=== PATIENT | female | born 1950 | race African-American/Black ===

== ENCOUNTER 2016-09-16 10:25 | Inpatient (IN) | payer MEDICARE, OTHER ==
[2016-09-16 10:36] VITALS: BMI 38.0
[2016-09-16] MEDS ORDERED: SODIUM CHLORIDE 0.9% 1000 ML INFUS.BAG IV PRN (11:11)
[2016-09-16] MEDS ORDERED: ACETAMINOPHEN 325 MG TABLET (FP) PO ONE (11:14)
[2016-09-16] MEDS ORDERED: ALBUTEROL SO4 2.5/IPRATROPIUM 0.5 INH SOL 3 ML VIAL.NEB. NEB ONE ×2 (11:16→11:49)
--- NOTE | 2016-09-16 11:16 | PDOC ---
History of Present Illness - General Chief Complaint: Shortness of Breath Stated Complaint: COUGH, LIGHTHEADED Time Seen by Provider: 09/16/16 10:45 History Source: Patient Exam Limitations: No Limitations - History of Present Illness Initial Comments: 09/16/16 11:42 65 yo F with PMHx of HTN , HLD, NIDDM, and CVA presents with 5 day history of cough and shortness of breath. She states that for the past week cough has been productive and worsened. BONNER not responsive to home breathing treatments. No alleviating or aggivating factors. Accompanied by body aches, CASTILLO, nausea and fever. She also endorses some LUQ pain which she attributes to continuous coughing. Denies palpitations, abd.pain, constipation, diarrhea or hemoptysis. Timing/Duration: reports: getting worse, week Associated Symptoms: reports: chest pain/soreness, cough Past History - Past Medical History Allergies/Adverse Reactions: Allergies Allergy/AdvReac Type Severity Reaction Status Date / Time methylphenidate HCl Allergy Verified 09/16/16 10:30 [From Ritalin] Home Medications: Ambulatory Orders Albuterol Sulfate Inhaler - [Ventolin Hfa Inhaler -] 1 puff IH ASDIR PRN Calcium Carbonate [Calcium] 500 mg PO DAILY 09/16/16 Clopidogrel Bisulfate [Clopidogrel] 75 mg PO DAILY 09/16/16 Fluconazole 150 mg PO DAILY 09/16/16 Linagliptin [Tradjenta] 5 mg PO DAILY 09/16/16 Pantoprazole Sodium [Protonix] 40 mg PO DAILY 09/16/16 Simvastatin 40 mg PO DAILY 09/16/16 Umeclidinium Brm/Vilanterol Tr [Anoro Ellipta 62.5-25 Mcg INH] 1 each IH DAILY PRN 09/16/16 Valsartan 80 mg PO DAILY 09/16/16 Cancer: Yes (CERVIX) CVA: Yes (LEFT SIDED WEAKNESS RESIDUAL) Dialysis: Yes HTN: Yes Hypercholesterolemia: Yes Other medical history: LEGALY BLIND, SCOLIOSIS - Psycho/Social/Smoking Cessation Hx Anxiety: No Suicidal Ideation: No Smoking Status: No Smoking History: Former smoker Have you smoked in the past 12 months: No Number of Cigarettes Smoked Daily: 0 Information on smoking cessation initiated: No Hx Alcohol Use: No Drug/Substance Use Hx: No Substance Use Type: None *Physical Exam - Vital Signs Last Vital Signs Temp Pulse Resp BP Pulse Ox 98.7 F 99 H 18 132/45 93 L 09/16/16 10:33 09/16/16 10:33 09/16/16 10:33 09/16/16 10:33 09/16/16 10:33 Heart Score/ECG Review - ECG Intrepretation Rhythm: Regular Rhythm - [place]: Normal - ST and T Non Specific ST-T Wave changes: Yes - ECG Impressions Normal ECG: Yes Comment:: 09/16/16 13:33 NSR normal intervals , No ST or T wave abnormalities. ED Treatment Course - LABORATORY CBC & Chemistry Diagram: 09/16/16 11:45 09/16/16 11:45 - RADIOLOGY Radiology Studies Ordered: Category Date Time Status CHEST X-RAY PORTABLE* [RAD] Stat Radiology 09/16/16 11:11 Ordered Radiograph Interpretation: 09/16/16 13:32 EXAM#: TYPE/EXAM: RESULT: [id number] RAD/CHEST X-RAY PORTABLE* Rule out sepsis Portable chest x-ray semierect. Since 04/12/2016, the cardiac silhouette remains slightly enlarged. Significant levoscoliosis of the thoracic spine again noted. There are mild bilateral perihilar increased interstitial lung markings. Mild right perihilar atelectatic changes are present. No pneumothorax or pleural effusion is identified, bilaterally IMPRESSION: Interval mild atelectatic changes in the right mid lung, perihilar region. Cannot rule out infiltrates. Follow-up chest x-ray is needed Reported By: Claire Guillermo MD Medical Decision Making - Medical Decision Making 09/16/16 13:27 65 yo F with PMHx of HTN , HLD, NIDDM, and CVA presents with 5 day history of cough and shortness of breath. Found to be hypoxic 91% on RA and febrile 100.4 . Sepsis protocol sent. CBC, BC, CMP, UZ CXR, Lactic acid sent. 09/16/16 13:34 * Chest Xray cannot rule out infiltrate. * Given Age , Hypoxia, fever, and CXR findings decision is to admit. 09/16/16 13:[address] Kennedy who accepts the patient. *DC/Admit/Observation/Transfer Diagnosis at time of Disposition: CAP (community acquired pneumonia), Hypoxia - Discharge Dispostion Admit: Yes
--- NOTE | 2016-09-16 11:27 | PDOC ---
Attending Attestation - Resident Resident Name: Ezra Nina - ED Attending Attestation I have performed the following: I have examined & evaluated the patient, The case was reviewed & discussed with the resident, I agree w/resident's findings & plan, Exceptions are as noted - HPI HPI: 09/16/16 11:22 65-year-old female with history of stroke, HTN, NIDDM, scoliosis with worsening cough/f/c over the weekend. - Physicial Exam PE: 09/16/16 11:26 febrile, O2 sat 93% generally well appearing, intermittent coarse cough, speaking full sentences R base rhonchi and wheeze - Medical Decision Making 09/16/16 11:27 Patient seen and evaluated with the resident. I agree with the overall evaluation, assessment, and management with the following summary of visit: 65y/o F with fever/cough. sepsis protocol initiated. flu swab, r/o pna tylenol for fever nebs abx as needed reassess
[2016-09-16] MEDS ORDERED: ONDANSETRON *ODT* 4 MG TABLET SL ONE (11:45)
[2016-09-16] MEDS ORDERED: ACETAMINOPHEN 325 MG TABLET (FP) ONE (11:49)
[2016-09-16] MEDS ORDERED: ONDANSETRON 4 MG/2 ML VIAL ONE (11:49)
[2016-09-16 11:53] LABS: BASOPHIL 0.3 % (0-2.0); EOSINOPHIL 2.1 % (0-4.5); MCH 27.6 pg (25.7-33.7); MCHC 32.5 g/dl (32.0-36.0); MEAN CELL VOLUME 84.8 fl (80-96); MEAN PLT VOLUME 8.8 fl (7.5-11.1); NEUTROPHILS 68.9 % (42.8-82.8); PLATELET COUNT 196 K/MM3 (134-434); RDW 14.2 % (11.6-15.6); WHITE BLOOD COUNT 8.9 K/mm3 (4.0-10.0)
[2016-09-16] MEDS ORDERED: ONDANSETRON 4 MG/2 ML VIAL IVPB ONE (11:54)
[2016-09-16 12:05] LABS: VENOUS PH 7.39 (7.32-7.42)
[2016-09-16 12:07] LABS: VENOUS BLOOD GAS HCO3 27.3 meq/L (19-25)
[2016-09-16 12:10] LABS: ALBUMIN 3.6 g/dl (3.4-5.0); ANION GAP 10 (8-16); BILIRUBIN,TOTAL 0.8 mg/dL (0.2-1.0); CALCIUM 9.1 mg/dL (8.5-10.1); CO2 27 mmol/L (21-32); COCKROFT - GAULT 100.9715; CREATININE 0.7 mg/dL (0.55-1.02); GLUCOSE,RANDOM 101 mg/dL (74-106); SGOT/AST 20 U/L (15-37); SGPT/ALT 21 U/L (12-78); TOT PROT 7.6 g/dl (6.4-8.2)
[2016-09-16 12:15] LABS: ALK PHOS 71 U/L (45-117); TROPONIN I < 0.02 ng/ml (0.00-0.05)
[2016-09-16 12:21] LABS: INR 1.14 (0.82-1.09); PROTHROMBIN TIME (PATIENT) 12.6 SEC (9.98-11.88)
[2016-09-16] MEDS ORDERED: cefTRIAXone 1 GM/50 ML BAG (PRE-DOCKED) IVPB ONE (13:39)
[2016-09-16] MEDS ORDERED: AZITHROMYCIN IVPB 500 MG in DEXTROSE 5%-WATER - 250 ML IVPB ONE (13:39)
[2016-09-16] MEDS ORDERED: CEFTRIAXONE 50 ML ONE (14:16)
[2016-09-16] MEDS ORDERED: AZITHROMYCIN IVPB 250 ML IVPB ONE (14:16)
[2016-09-16] MEDS ORDERED: PATIENT'S OWN MEDICATION (NON-FORMULARY) (Umeclidinium Brm/Vilanterol Tr [Anoro Ellipta 62 IH PRN (15:11)
[2016-09-16] MEDS ORDERED: ALBUTEROL SO4 2.5/IPRATROPIUM 0.5 INH SOL 3 ML VIAL.NEB. NEB PRN (15:12)
--- NOTE | 2016-09-16 17:03 | PN ---
Progress Note (short form) - Note Progress Note: PULMONARY CONSULTATION DICTATED 09/16/16 IMP RUL PNEUMONIA ASTHMA HTN NIDDM PLAN IV ANTIBIOTICS INHALED BRONCHODILATORS NASAL O2 SPUTUM C+S CHEST CT DR AYON Problem List - Problems (1) CAP (community acquired pneumonia) Code(s): J18.9 - PNEUMONIA, UNSPECIFIED ORGANISM (2) Hypoxia Code(s): R09.02 - HYPOXEMIA (3) Headache Code(s): R51 - HEADACHE (4) Hypertension Code(s): I10 - ESSENTIAL (PRIMARY) HYPERTENSION (5) Asthma Code(s): J45.909 - UNSPECIFIED ASTHMA, UNCOMPLICATED
--- NOTE | 2016-09-16 19:38 | CONS ---
DATE OF CONSULTATION: 09/16/2016 PULMONARY CONSULTATION REFERRING PHYSICIAN: Calin Kennedy M.D. HISTORY OF PRESENT ILLNESS: The patient is a 65-year-old black female, with past medical history of hypertension, hyperlipidemia, non-insulin dependent diabetes mellitus, history of CVA, blindness, history of asthma, admitted to [facility] complaining of a 5-day history of increasing shortness of breath, some cough and sputum production. Patient states that last week started noticing increasing shortness of breath and cough. Denied any complaints of chest pain or palpitations. States that she took an inhaler without any improvement. She presented to the emergency room as above. In the ER, she admitted she was noted to have possible right upper lobe infiltrate. She is on antibiotic therapy. Patient also states she had body aches, headaches, and fever. There is no history of recent travel. She has history of smoking many years ago. There is no history of occupational exposure to chemicals or fumes. PAST MEDICAL HISTORY: Again includes hypertension, hyperlipidemia, non-insulin dependent diabetes mellitus, CVA and asthma. MEDICATION: Prior to admission include albuterol, calcium, Plavix, fluconazole , and Tradjenta. Current medications include Anoro Ellipta, Diovan, DuoNeb, Januvia, Lipitor, Plavix, Protonix, and Os-Kota. REVIEW OF SYSTEMS: Positive cough. Positive chest congestion. Positive fever. Positive chills. No abdominal pain. No nausea. No vomiting. PHYSICAL EXAMINATION: General: The patient is a well-developed, well-nourished female awake, alert, in no acute distress. Vital signs: She is currently afebrile. Blood pressure 132/45, respiratory rate 18, O2 saturation is 93% on room air. HEENT: Head is normocephalic, atraumatic. Neck: Supple. Heart: Regular. S1, S2. Chest: Scattered bilateral wheeze, no rhonchi. Abdomen: Soft. Bowel sounds positive. Extremities: No cyanosis, edema. LABORATORY: WBC is 8.9, hemoglobin 13.8, hematocrit 42.6, with platelet count of 196,000. INR is 1.14. Venous blood gases: pH 7.39, pCO2 of 46, pO2 of 36, bicarbonate of 27. Chemistries: BUN 10, creatinine 0.7. Chest x-ray revealed possible infiltrate right upper lobe, mild atelectatic change, possible right upper lobe, right perihilar infiltrate. IMPRESSION: 1. Likely pneumonia, community acquired. 2. Asthma. 3. Non-insulin dependent diabetes mellitus. 4. Hypertension. 5. Status post cerebrovascular accident. PLAN: IV antibiotics, inhaled bronchodilators, supplemental O2, sputum for C&S , also CT scan of the chest, and blood cultures. CADY AYON M.D. [id number] MTDD
[2016-09-16] MEDS: HEPARIN NA (PORCINE) 5,000 UNITS/ML 1ML VIAL SQ SCH (22:04)
[2016-09-16] MEDS: ATORVASTATIN CA 20 MG TABLET (FP) PO SCH (22:04)
[2016-09-16] MEDS: BUDESONIDE/FORMETEROL FUMARATE 160/4.5 mcg INHALER IH SCH (22:57)
[2016-09-17 01:04] LABS: URINE APPEARANCE CLEAR; URINE BILIRUBIN NEGATIVE (NEGATIVE); URINE BLOOD NEGATIVE (NEGATIVE); URINE COLOR LTYELLOW; URINE GLUCOSE (UA) NEGATIVE (NEGATIVE); URINE KETONE NEGATIVE (NEGATIVE); URINE NITRITE NEGATIVE (NEGATIVE); URINE PROTEIN NEGATIVE (NEGATIVE); URINE UROBILINOGEN NEGATIVE E.U./dl (0.2-1.0)
[2016-09-17 01:12] LABS: URINE LEUK ESTERASE 2+ (NEGATIVE)
[2016-09-17 01:14] LABS: URINE MUCUS RARE; URINE RBC 2 /hpf (0-3); URINE WBC 4 /hpf (3-5)
[2016-09-17] MEDS: sitaGLIPtin PHOSPHATE 100 MG TABLET (FP) PO SCH (06:38)
--- NOTE | 2016-09-17 06:52 | HP ---
Admitting History and Physical - Primary Care Physician PCP: Sergo Navarrete - Admission Chief Complaint: PNA History Source: Medical Record - Smoking History Smoking history: Former smoker Have you smoked in the past 12 months: No Aproximately how many cigarettes per day: 0 - Alcohol/Substance Use Hx Alcohol Use: No Home Medications - Allergies Allergies/Adverse Reactions: Allergies Allergy/AdvReac Type Severity Reaction Status Date / Time methylphenidate HCl Allergy Verified 09/16/16 10:30 [From Ritalin] - Home Medications Home Medications: Ambulatory Orders Albuterol Sulfate Inhaler - [Ventolin Hfa Inhaler -] 1 puff IH ASDIR PRN Calcium Carbonate [Calcium] 500 mg PO DAILY 09/16/16 Clopidogrel Bisulfate [Clopidogrel] 75 mg PO DAILY 09/16/16 Fluconazole 150 mg PO DAILY 09/16/16 Linagliptin [Tradjenta] 5 mg PO DAILY 09/16/16 Pantoprazole Sodium [Protonix] 40 mg PO DAILY 09/16/16 Simvastatin 40 mg PO DAILY 09/16/16 Umeclidinium Brm/Vilanterol Tr [Anoro Ellipta 62.5-25 Mcg INH] 1 each IH DAILY PRN 09/16/16 Valsartan 80 mg PO DAILY 09/16/16 Review of Systems - Review of Systems Constitutional: reports: Fever. denies: Chills Cardiovascular: denies: Chest Pain Respiratory: reports: SOB Gastrointestinal: denies: Abdominal Pain Physical Examination Vital Signs: Vital Signs Temperature 99.6 F 09/16/16 21:00 Pulse Rate 91 H 09/16/16 21:00 Respiratory Rate 20 09/16/16 21:00 Blood Pressure 153/67 09/16/16 21:00 O2 Sat by Pulse Oximetry (%) 93 L 09/16/16 21:00 Constitutional: Yes: Calm Neck: Yes: WNL Cardiovascular: Yes: WNL Respiratory: Yes: Rhonchi Gastrointestinal: Yes: WNL Edema: No Imaging - Results Chest X-ray: Report Reviewed Problem List - Problems (1) CAP (community acquired pneumonia) Code(s): J18.9 - PNEUMONIA, UNSPECIFIED ORGANISM (2) Hypertension Code(s): I10 - ESSENTIAL (PRIMARY) HYPERTENSION (3) Diabetes Code(s): E11.9 - TYPE 2 DIABETES MELLITUS WITHOUT COMPLICATIONS (4) Asthma Code(s): J45.909 - UNSPECIFIED ASTHMA, UNCOMPLICATED Assessment/Plan 65 yo F with PMHx of HTN , HLD, NIDDM, and CVA presents with 5 day history of cough and shortness of breath. She states that for the past week cough has been productive and worsened. BONNER not responsive to home breathing treatments. No alleviating or aggivating factors. Accompanied by body aches, CASTILLO, nausea and fever. She also endorses some LUQ pain which she attributes to continuous coughing. Denies palpitations, abd.pain, constipation, diarrhea or hemoptysis. (1) CAP (community acquired pneumonia) Code(s): J18.9 - PNEUMONIA, UNSPECIFIED ORGANISM APPRECIATE PULM CONSULT ID CONSULTED STEROIDS IV ABx DUONEB (2) Hypertension Code(s): I10 - ESSENTIAL (PRIMARY) HYPERTENSION (3) Diabetes Code(s): E11.9 - TYPE 2 DIABETES MELLITUS WITHOUT COMPLICATIONS BGM ISS (4) Asthma Code(s): J45.909 - UNSPECIFIED ASTHMA, UNCOMPLICATED DUONEB PO STEROIDS IV ABx PASTOR WALKER
[2016-09-17] MEDS: INSULIN SLIDING SCALE (NOVOLOG) 1 VIAL SQ SCH ×4 (07:24→21:49)
[2016-09-17 07:43] LABS: BASOPHIL 0.2 % (0-2.0); EOSINOPHIL 5.1 % (0-4.5); MCH 27.4 pg (25.7-33.7); MCHC 32.6 g/dl (32.0-36.0); MEAN CELL VOLUME 84.1 fl (80-96); MEAN PLT VOLUME 9.1 fl (7.5-11.1); NEUTROPHILS 52.6 % (42.8-82.8); PLATELET COUNT 169 K/MM3 (134-434); RDW 13.8 % (11.6-15.6); WHITE BLOOD COUNT 8.3 K/mm3 (4.0-10.0)
[2016-09-17 08:37] LABS: CALCIUM 8.5 mg/dL (8.5-10.1)
[2016-09-17 08:44] LABS: ALK PHOS 59 U/L (45-117); ANION GAP 12 (8-16); BILIRUBIN,TOTAL 0.5 mg/dL (0.2-1.0); CO2 25 mmol/L (21-32); CREATININE 0.5 mg/dL (0.55-1.02); GLUCOSE,RANDOM 89 mg/dL (74-106); SGOT/AST 26 U/L (15-37); SGPT/ALT 22 U/L (12-78); TOT PROT 6.4 g/dl (6.4-8.2)
[2016-09-17] MEDS: CALCIUM (OYSTER SHELL) 500 MG TABLET (FP) PO SCH (09:59)
[2016-09-17] MEDS: CLOPIDOGREL BISULFATE 75 MG TABLET (FP) PO SCH (09:59)
[2016-09-17] MEDS: predniSONE 20 MG TABLET (UD) PO SCH (10:00)
[2016-09-17] MEDS: HEPARIN NA (PORCINE) 5,000 UNITS/ML 1ML VIAL SQ SCH ×2 (10:00→21:49)
[2016-09-17] MEDS: PANTOPRAZOLE 40 MG TABLET (FP) PO SCH (10:00)
[2016-09-17] MEDS: BUDESONIDE/FORMETEROL FUMARATE 160/4.5 mcg INHALER IH SCH ×2 (10:00→21:49)
[2016-09-17] MEDS: VALSARTAN 80 MG TABLET (UD) PO SCH (10:00)
--- NOTE | 2016-09-17 13:05 | EKG ---
Test Reason : Blood Pressure : / mmHG Vent. Rate : 082 BPM Atrial Rate : 082 BPM P-R Int : 164 ms QRS Dur : 084 ms QT Int : 382 ms P-R-T Axes : 034 -28 003 degrees QTc Int : 446 ms NORMAL SINUS RHYTHM MINIMAL VOLTAGE CRITERIA FOR LVH, MAY BE NORMAL VARIANT NONSPECIFIC T WAVE ABNORMALITY ABNORMAL ECG WHEN COMPARED WITH ECG OF 12-APR-2016 12:35, NO SIGNIFICANT CHANGE WAS FOUND Confirmed by DC LEE, ROXY ([id number]) on 09/17/2016 1:05:22 PM Referred By: Confirmed By:ROXY IRWIN MD
--- NOTE | 2016-09-17 14:15 | PN ---
Progress Note, Physician History of Present Illness: PULMONARY ALERT,FEELING BETTER,LESS COUGH - Current Medication List Current Medications: Active Medications Albuterol/Ipratropium (Duoneb -) 1 amp NEB Q4H PRN PRN Reason: SHORTNESS OF BREATH Atorvastatin Calcium (Lipitor -) 20 mg PO HS [facility] Last Admin: 09/16/16 22:04 Dose: 20 mg Budesonide/Formoterol Fumarate (Symbicort 160/4.5mcg -) 2 puff IH BID [facility] Last Admin: 09/17/16 10:00 Dose: 2 puff Calcium Carbonate (Os-Kota 500mg -) 500 mg PO DAILY [facility] Last Admin: 09/17/16 09:59 Dose: 500 mg Clopidogrel Bisulfate (Plavix -) 75 mg PO DAILY [facility] Last Admin: 09/17/16 09:59 Dose: 75 mg Heparin Sodium (Porcine) (Heparin -) 5,000 unit SQ BID [facility] Last Admin: 09/17/16 10:00 Dose: 5,000 unit Insulin Aspart (Novolog Vial Sliding Scale -) 1 vial SQ ACHS [facility] PRN Reason: Protocol Last Admin: 09/17/16 12:28 Dose: Not Given Pantoprazole Sodium (Protonix -) 40 mg PO DAILY [facility] Last Admin: 09/17/16 10:00 Dose: 40 mg Prednisone (Deltasone -) 40 mg PO DAILY [facility] Stop: 09/22/16 09:59 Last Admin: 09/17/16 10:00 Dose: 40 mg Sitagliptin Phosphate (Januvia -) 100 mg PO DAILY@0700 [facility] Last Admin: 09/17/16 06:38 Dose: 100 mg Sodium Chloride (Normal Saline -) 1,000 ml IV Q20M PRN PRN Reason: MAP<65mm Hg OR SBP <90 Last Admin: 09/16/16 11:56 Dose: 1,000 ml Valsartan (Diovan -) 80 mg PO DAILY [facility] Last Admin: 09/17/16 10:00 Dose: 80 mg - Objective Vital Signs: Vital Signs Temperature 98.7 F 09/17/16 13:59 Pulse Rate 82 09/17/16 13:59 Respiratory Rate 18 09/17/16 13:59 Blood Pressure 150/46 09/17/16 13:59 O2 Sat by Pulse Oximetry (%) 93 L 09/16/16 21:00 Constitutional: Yes: Well Nourished, Calm Eyes: Yes: WNL HENT: Yes: WNL Neck: Yes: WNL Cardiovascular: Yes: Regular Rate and Rhythm, S1, S2 Respiratory: Yes: Rhonchi (SCATTERED RHONCHI) Gastrointestinal: Yes: Normal Bowel Sounds, Soft Extremities: Yes: WNL Edema: No Labs: CBC, BMP 09/17/16 06:35 09/17/16 06:35 INR, PTT INR 1.14 (0.82-1.09) 09/16/16 11:45 Problem List - Problems (1) CAP (community acquired pneumonia) Code(s): J18.9 - PNEUMONIA, UNSPECIFIED ORGANISM (2) Hypoxia Code(s): R09.02 - HYPOXEMIA (3) Headache Code(s): R51 - HEADACHE (4) Hypertension Code(s): I10 - ESSENTIAL (PRIMARY) HYPERTENSION (5) Asthma Code(s): J45.909 - UNSPECIFIED ASTHMA, UNCOMPLICATED Assessment/Plan IMP RUL PNEUMONIA ASTHMA HTN NIDDM PLAN IV ANTIBIOTICS INHALED BRONCHODILATORS NASAL O2 SPUTUM C+S CHEST CT DR AYON Problem List - Problems (1) CAP (community acquired pneumonia) Code(s): J18.9 - PNEUMONIA, UNSPECIFIED ORGANISM (2) Hypoxia Code(s): R09.02 - HYPOXEMIA (3) Headache Code(s): R51 - HEADACHE (4) Hypertension Code(s): I10 - ESSENTIAL (PRIMARY) HYPERTENSION (5) Asthma Code(s): J45.909 - UNSPECIFIED ASTHMA, UNCOMPLICATED
--- NOTE | 2016-09-17 14:55 | PN ---
Progress Note (short form) - Note Progress Note: ID Consult dictated Community acquired v atypical R pneumonia Possible sepsis secondary to pneumonia Diabetes mellitus pending sepsis workup, empiric zithromax/ ceftriaxone
--- NOTE | 2016-09-17 15:34 | CONS ---
DATE OF CONSULTATION: DATE OF DICTATION: 09/17/2016 INFECTIOUS DISEASE CONSULTATION HISTORY OF PRESENT ILLNESS: The patient is a 65-year-old female with multiple comorbidities including diabetes mellitus, stroke, and blindness, evaluated for pneumonia. She presented with a 5-day history of worsening productive cough, dyspnea, headache, body ache, fever, chills. She also experienced left upper quadrant abdominal pain secondary to excessive coughing. Patient is legally blind and was unable to tell us the color of the sputum; however, she reports that it was very thick. She had been in contact with a young child with a respiratory tract infection. Patient states she did receive influenza vaccine, denies recent hospitalizations. She is a nonsmoker. PAST MEDICAL HISTORY: Positive for diabetes mellitus, stroke, blindness, hypertension, hyperlipidemia, cervical cancer. ALLERGIES: RITALIN. MEDICATION: Include Zithromax, ceftriaxone, Symbicort, prednisone, Diovan, DuoNeb, Januvia, Lipitor, Plavix, Protonix. SOCIAL HISTORY: Lives at home. Nonsmoker, nondrinker. SYSTEMS REVIEW: Neurologic: Positive for stroke and left hemiparesis. Cardiac: Negative chest pain or palpitations. Respiratory: As per HPI. Gastrointestinal: Negative vomiting or diarrhea. Genitourinary: Negative for urinary tract infection. LABORATORY DATA: White count 8.3, hematocrit 37.3, platelet count 169, creatinine 0.5. Urinalysis: 4 white cells. Chest x-ray shows increased markings right lung field. PHYSICAL EXAMINATION: General: She is awake. She is legally blind. Vital signs: Temperature 98.7, blood pressure 150/46, pulse 82 regular, respirations 16 per minute. HEENT: Sclerae anicteric. Cardiovascular: Heart sounds S1, S2. Respiratory: Lungs rhonchi bilaterally right greater than left. Abdomen: Soft. No tenderness elicited. No mass, rebound, or rigidity. Extremities: 1+ edema. IMPRESSION:1. Community acquired versus atypical right sided pneumonia. 2. Possible sepsis secondary to pneumonia. 3. Diabetes mellitus. Obtain sputum culture. Urine legionella and pneumococcal antigens. Empiric antibiotic coverage with Zithromax and ceftriaxone pending cultures. Will follow. Thank you for the kind referral. KATIE CHAU M.D. [id number]
[2016-09-17] MEDS: ATORVASTATIN CA 20 MG TABLET (FP) PO SCH (21:49)
[2016-09-18] MEDS: INSULIN SLIDING SCALE (NOVOLOG) 1 VIAL SQ SCH ×4 (06:48→21:58)
[2016-09-18] MEDS: sitaGLIPtin PHOSPHATE 100 MG TABLET (FP) PO SCH (06:48)
--- NOTE | 2016-09-18 06:50 | PN ---
Progress Note, Physician Chief Complaint: no distress ambulating with mild dyspnea (baseline) - Current Medication List Current Medications: Active Medications Albuterol/Ipratropium (Duoneb -) 1 amp NEB Q4H PRN PRN Reason: SHORTNESS OF BREATH Atorvastatin Calcium (Lipitor -) 20 mg PO HS [facility] Last Admin: 09/17/16 21:49 Dose: 20 mg Budesonide/Formoterol Fumarate (Symbicort 160/4.5mcg -) 2 puff IH BID [facility] Last Admin: 09/17/16 21:49 Dose: 2 puff Calcium Carbonate (Os-Kota 500mg -) 500 mg PO DAILY [facility] Last Admin: 09/17/16 09:59 Dose: 500 mg Clopidogrel Bisulfate (Plavix -) 75 mg PO DAILY [facility] Last Admin: 09/17/16 09:59 Dose: 75 mg Heparin Sodium (Porcine) (Heparin -) 5,000 unit SQ BID [facility] Last Admin: 09/17/16 21:49 Dose: 5,000 unit Insulin Aspart (Novolog Vial Sliding Scale -) 1 vial SQ ACHS [facility] PRN Reason: Protocol Last Admin: 09/18/16 06:48 Dose: Not Given Pantoprazole Sodium (Protonix -) 40 mg PO DAILY [facility] Last Admin: 09/17/16 10:00 Dose: 40 mg Prednisone (Deltasone -) 40 mg PO DAILY [facility] Stop: 09/22/16 09:59 Last Admin: 09/17/16 10:00 Dose: 40 mg Sitagliptin Phosphate (Januvia -) 100 mg PO DAILY@0700 [facility] Last Admin: 09/18/16 06:48 Dose: 100 mg Sodium Chloride (Normal Saline -) 1,000 ml IV Q20M PRN PRN Reason: MAP<65mm Hg OR SBP <90 Last Admin: 09/16/16 11:56 Dose: 1,000 ml Valsartan (Diovan -) 80 mg PO DAILY [facility] Last Admin: 09/17/16 10:00 Dose: 80 mg - Objective Vital Signs: Vital Signs Temperature 98.2 F 09/17/16 19:00 Pulse Rate 74 09/17/16 22:00 Respiratory Rate 18 09/17/16 22:00 Blood Pressure 154/64 09/17/16 22:00 O2 Sat by Pulse Oximetry (%) 97 09/17/16 21:00 Constitutional: Yes: Calm Eyes: Yes: Other (blind) Neck: Yes: WNL Cardiovascular: Yes: WNL Respiratory: Yes: WNL Gastrointestinal: Yes: WNL Edema: No Labs: CBC, BMP 09/17/16 06:35 09/17/16 06:35 INR, PTT INR 1.14 (0.82-1.09) 09/16/16 11:45 Problem List - Problems (1) CAP (community acquired pneumonia) Code(s): J18.9 - PNEUMONIA, UNSPECIFIED ORGANISM (2) Hypertension Code(s): I10 - ESSENTIAL (PRIMARY) HYPERTENSION (3) Diabetes Code(s): E11.9 - TYPE 2 DIABETES MELLITUS WITHOUT COMPLICATIONS (4) Asthma Code(s): J45.909 - UNSPECIFIED ASTHMA, UNCOMPLICATED Assessment/Plan 65 yo F with PMHx of HTN , HLD, NIDDM, and CVA presents with 5 day history of cough and shortness of breath. She states that for the past week cough has been productive and worsened. BONNER not responsive to home breathing treatments. No alleviating or aggivating factors. Accompanied by body aches, CASTILLO, nausea and fever. She also endorses some LUQ pain which she attributes to continuous coughing. Denies palpitations, abd.pain, constipation, diarrhea or hemoptysis. (1) CAP (community acquired pneumonia) Code(s): J18.9 - PNEUMONIA, UNSPECIFIED ORGANISM APPRECIATE PULM & ID CONSULTS ID CONSULTED PO STEROIDS IV ABx DUONEB (2) Hypertension Code(s): I10 - ESSENTIAL (PRIMARY) HYPERTENSION (3) Diabetes Code(s): E11.9 - TYPE 2 DIABETES MELLITUS WITHOUT COMPLICATIONS BGM ISS (4) Asthma Code(s): J45.909 - UNSPECIFIED ASTHMA, UNCOMPLICATED DUONEB PO STEROIDS IV ABx [facility]
[2016-09-18 08:54] LABS: BASOPHIL 0.2 % (0-2.0); EOSINOPHIL 0.9 % (0-4.5); MCH 27.5 pg (25.7-33.7); MCHC 32.3 g/dl (32.0-36.0); MEAN CELL VOLUME 85.2 fl (80-96); MEAN PLT VOLUME 9.3 fl (7.5-11.1); NEUTROPHILS 45.5 % (42.8-82.8); PLATELET COUNT 188 K/MM3 (134-434); WHITE BLOOD COUNT 7.2 K/mm3 (4.0-10.0)
[2016-09-18 09:08] LABS: ALBUMIN 3.1 g/dl (3.4-5.0); ANION GAP 9 (8-16); CALCIUM 8.8 mg/dL (8.5-10.1); CO2 28 mmol/L (21-32); CREATININE 0.5 mg/dL (0.55-1.02); GLUCOSE,RANDOM 93 mg/dL (74-106); SGOT/AST 27 U/L (15-37); SGPT/ALT 26 U/L (12-78)
[2016-09-18 09:10] LABS: ALK PHOS 59 U/L (45-117); BILIRUBIN,TOTAL 0.3 mg/dL (0.2-1.0); TOT PROT 6.7 g/dl (6.4-8.2)
[2016-09-18] MEDS: CALCIUM (OYSTER SHELL) 500 MG TABLET (FP) PO SCH (10:54)
[2016-09-18] MEDS: predniSONE 20 MG TABLET (UD) PO SCH (10:54)
[2016-09-18] MEDS: PANTOPRAZOLE 40 MG TABLET (FP) PO SCH (10:55)
[2016-09-18] MEDS: VALSARTAN 80 MG TABLET (UD) PO SCH (10:55)
[2016-09-18] MEDS: BUDESONIDE/FORMETEROL FUMARATE 160/4.5 mcg INHALER IH SCH ×2 (10:55→21:58)
[2016-09-18] MEDS: CLOPIDOGREL BISULFATE 75 MG TABLET (FP) PO SCH (10:55)
[2016-09-18] MEDS: HEPARIN NA (PORCINE) 5,000 UNITS/ML 1ML VIAL SQ SCH ×2 (10:55→21:58)
--- NOTE | 2016-09-18 15:18 | PN ---
Progress Note (short form) - Note Progress Note: PULMONARY VSS/AFEBRILE APPEARS COMFORTABLE/OFFERS NO COMPLAINTS NO JVD/NECK SUPPLE DISTANT B/L BREATH SOUNDS/ KYPHOSCOLIOSIS S1S2 BS+ NO EDEMA LABS/CT CHEST/MEDS/MICRO/NOTES REVIEWED IMP RUL PNEUMONIA ASTHMA HTN NIDDM PLAN IV ANTIBIOTICS INHALED BRONCHODILATORS NASAL O2 SPUTUM C+S TAPER PREDNISONE Delilah RIVERA MD
[2016-09-18] MEDS: AZITHROMYCIN IVPB 250 ML IVPB SCH (15:25)
--- NOTE | 2016-09-18 16:34 | PN ---
Progress Note, Physician History of Present Illness: OOB IN CHAIR Reports less dyspnea/ cough/ sputum Afebrile CT chest shows patchy R infiltrate - Current Medication List Current Medications: Active Medications Albuterol/Ipratropium (Duoneb -) 1 amp NEB Q4H PRN PRN Reason: SHORTNESS OF BREATH Atorvastatin Calcium (Lipitor -) 20 mg PO HS [facility] Last Admin: 09/17/16 21:49 Dose: 20 mg Budesonide/Formoterol Fumarate (Symbicort 160/4.5mcg -) 2 puff IH BID [facility] Last Admin: 09/18/16 10:55 Dose: 2 puff Calcium Carbonate (Os-Kota 500mg -) 500 mg PO DAILY [facility] Last Admin: 09/18/16 10:54 Dose: 500 mg Clopidogrel Bisulfate (Plavix -) 75 mg PO DAILY [facility] Last Admin: 09/18/16 10:55 Dose: 75 mg Heparin Sodium (Porcine) (Heparin -) 5,000 unit SQ BID [facility] Last Admin: 09/18/16 10:55 Dose: 5,000 unit Azithromycin (Zithromax 500mg Ivpb (Pre-Docked)) 250 mls @ 250 mls/hr IVPB DAILY [facility] Last Admin: 09/18/16 15:25 Dose: 250 mls/hr Ceftriaxone Sodium (Rocephin 2gm Ivpb (Pre-Docked)) 100 mls @ 200 mls/hr IVPB DAILY [facility] Insulin Aspart (Novolog Vial Sliding Scale -) 1 vial SQ ACHS [facility] PRN Reason: Protocol Last Admin: 09/18/16 12:14 Dose: Not Given Pantoprazole Sodium (Protonix -) 40 mg PO DAILY [facility] Last Admin: 09/18/16 10:55 Dose: 40 mg Prednisone (Deltasone -) 20 mg PO DAILY [facility] Stop: 09/22/16 09:59 Sitagliptin Phosphate (Januvia -) 100 mg PO DAILY@0700 [facility] Last Admin: 09/18/16 06:48 Dose: 100 mg Sodium Chloride (Normal Saline -) 1,000 ml IV Q20M PRN PRN Reason: MAP<65mm Hg OR SBP <90 Last Admin: 09/16/16 11:56 Dose: 1,000 ml Valsartan (Diovan -) 80 mg PO DAILY [facility] Last Admin: 09/18/16 10:55 Dose: 80 mg - Objective Vital Signs: Vital Signs Temperature 99.4 F 09/18/16 14:06 Pulse Rate 77 09/18/16 14:06 Respiratory Rate 17 09/18/16 14:06 Blood Pressure 117/69 09/18/16 14:06 O2 Sat by Pulse Oximetry (%) 97 09/17/16 21:00 Constitutional: Yes: No Distress, Obese Eyes: Yes: Conjunctiva Clear Cardiovascular: Yes: Regular Rate and Rhythm, S1, S2 Respiratory: Yes: Rhonchi Edema: Yes Labs: CBC, BMP 09/18/16 07:45 09/18/16 07:45 INR, PTT INR 1.14 (0.82-1.09) 09/16/16 11:45 Assessment/Plan Community acquired v atypical R pneumonia Diabetes mellitus await c/s Continue zithromax/ ceftriaxone
[2016-09-18] MEDS: CEFTRIAXONE 100 ML IVPB SCH (17:02)
[2016-09-18] MEDS: ATORVASTATIN CA 20 MG TABLET (FP) PO SCH (21:58)
[2016-09-19] MEDS: sitaGLIPtin PHOSPHATE 100 MG TABLET (FP) PO SCH (06:32)
[2016-09-19] MEDS: INSULIN SLIDING SCALE (NOVOLOG) 1 VIAL SQ SCH ×4 (06:32→21:58)
--- NOTE | 2016-09-19 06:34 | PN ---
Progress Note, Physician Chief Complaint: IN [employer] FEELS BETTER SANG TO ME YESTERDAY WHEN GOT HAPPY - Current Medication List Current Medications: Active Medications Albuterol/Ipratropium (Duoneb -) 1 amp NEB Q4H PRN PRN Reason: SHORTNESS OF BREATH Atorvastatin Calcium (Lipitor -) 20 mg PO HS [facility] Last Admin: 09/18/16 21:58 Dose: 20 mg Budesonide/Formoterol Fumarate (Symbicort 160/4.5mcg -) 2 puff IH BID [facility] Last Admin: 09/18/16 21:58 Dose: 2 puff Calcium Carbonate (Os-Kota 500mg -) 500 mg PO DAILY [facility] Last Admin: 09/18/16 10:54 Dose: 500 mg Clopidogrel Bisulfate (Plavix -) 75 mg PO DAILY [facility] Last Admin: 09/18/16 10:55 Dose: 75 mg Heparin Sodium (Porcine) (Heparin -) 5,000 unit SQ BID [facility] Last Admin: 09/18/16 21:58 Dose: 5,000 unit Azithromycin (Zithromax 500mg Ivpb (Pre-Docked)) 250 mls @ 250 mls/hr IVPB DAILY [facility] Last Admin: 09/18/16 15:25 Dose: 250 mls/hr Ceftriaxone Sodium (Rocephin 2gm Ivpb (Pre-Docked)) 100 mls @ 200 mls/hr IVPB DAILY [facility] Last Admin: 09/18/16 17:02 Dose: 200 mls/hr Insulin Aspart (Novolog Vial Sliding Scale -) 1 vial SQ ACHS [facility] PRN Reason: Protocol Last Admin: 09/19/16 06:32 Dose: Not Given Pantoprazole Sodium (Protonix -) 40 mg PO DAILY [facility] Last Admin: 09/18/16 10:55 Dose: 40 mg Prednisone (Deltasone -) 20 mg PO DAILY [facility] Stop: 09/22/16 09:59 Sitagliptin Phosphate (Januvia -) 100 mg PO DAILY@0700 [facility] Last Admin: 09/19/16 06:32 Dose: 100 mg Sodium Chloride (Normal Saline -) 1,000 ml IV Q20M PRN PRN Reason: MAP<65mm Hg OR SBP <90 Last Admin: 09/16/16 11:56 Dose: 1,000 ml Valsartan (Diovan -) 80 mg PO DAILY [facility] Last Admin: 09/18/16 10:55 Dose: 80 mg - Objective Vital Signs: Vital Signs Temperature 99.2 F 09/18/16 19:00 Pulse Rate 76 09/18/16 22:00 Respiratory Rate 18 09/18/16 22:00 Blood Pressure 146/54 09/18/16 22:00 O2 Sat by Pulse Oximetry (%) 95 09/18/16 21:00 Constitutional: Yes: Calm Neck: Yes: WNL Cardiovascular: Yes: WNL Respiratory: Yes: WNL Gastrointestinal: Yes: WNL Edema: No Labs: CBC, BMP 09/18/16 07:45 09/18/16 07:45 INR, PTT INR 1.14 (0.82-1.09) 09/16/16 11:45 Problem List - Problems (1) CAP (community acquired pneumonia) Code(s): J18.9 - PNEUMONIA, UNSPECIFIED ORGANISM (2) Hypertension Code(s): I10 - ESSENTIAL (PRIMARY) HYPERTENSION (3) Diabetes Code(s): E11.9 - TYPE 2 DIABETES MELLITUS WITHOUT COMPLICATIONS (4) Asthma Code(s): J45.909 - UNSPECIFIED ASTHMA, UNCOMPLICATED Assessment/Plan 65 yo F with PMHx of HTN , HLD, NIDDM, and CVA presents with 5 day history of cough and shortness of breath. She states that for the past week cough has been productive and worsened. BONNER not responsive to home breathing treatments. No alleviating or aggivating factors. Accompanied by body aches, CASTILLO, nausea and fever. She also endorses some LUQ pain which she attributes to continuous coughing. Denies palpitations, abd.pain, constipation, diarrhea or hemoptysis. (1) CAP (community acquired pneumonia) Code(s): J18.9 - PNEUMONIA, UNSPECIFIED ORGANISM APPRECIATE PULM & ID CONSULTS ID CONSULTED PO STEROIDS IV ABx DUONEB (2) Hypertension Code(s): I10 - ESSENTIAL (PRIMARY) HYPERTENSION (3) Diabetes Code(s): E11.9 - TYPE 2 DIABETES MELLITUS WITHOUT COMPLICATIONS BGM ISS (4) Asthma Code(s): J45.909 - UNSPECIFIED ASTHMA, UNCOMPLICATED DUONEB PO STEROIDS IV ABx [employer]
[2016-09-19 08:17] LABS: BASOPHIL 0.1 % (0-2.0); EOSINOPHIL 0.5 % (0-4.5); MCH 27.5 pg (25.7-33.7); MEAN CELL VOLUME 83.5 fl (80-96); MEAN PLT VOLUME 9.2 fl (7.5-11.1); NEUTROPHILS 50.1 % (42.8-82.8); PLATELET COUNT 208 K/MM3 (134-434); WHITE BLOOD COUNT 10.6 K/mm3 (4.0-10.0)
[2016-09-19 08:40] LABS: ALBUMIN 3.2 g/dl (3.4-5.0); ANION GAP 8 (8-16); CALCIUM 9.2 mg/dL (8.5-10.1); CO2 29 mmol/L (21-32); COCKROFT - GAULT 115.7955; CREATININE 0.6 mg/dL (0.55-1.02); GLUCOSE,RANDOM 91 mg/dL (74-106); SGOT/AST 23 U/L (15-37); SGPT/ALT 28 U/L (12-78)
[2016-09-19 08:42] LABS: ALK PHOS 64 U/L (45-117); BILIRUBIN,TOTAL 0.4 mg/dL (0.2-1.0); TOT PROT 7.1 g/dl (6.4-8.2)
[2016-09-19] MEDS: predniSONE 20 MG TABLET (UD) PO SCH (10:33)
[2016-09-19] MEDS: CLOPIDOGREL BISULFATE 75 MG TABLET (FP) PO SCH (10:33)
[2016-09-19] MEDS: CALCIUM (OYSTER SHELL) 500 MG TABLET (FP) PO SCH (10:33)
[2016-09-19] MEDS: HEPARIN NA (PORCINE) 5,000 UNITS/ML 1ML VIAL SQ SCH ×2 (10:33→21:56)
[2016-09-19] MEDS: PANTOPRAZOLE 40 MG TABLET (FP) PO SCH (10:33)
[2016-09-19] MEDS: AZITHROMYCIN IVPB 250 ML IVPB SCH (10:34)
[2016-09-19] MEDS: VALSARTAN 80 MG TABLET (UD) PO SCH (10:34)
[2016-09-19] MEDS: CEFTRIAXONE 100 ML IVPB SCH (10:34)
[2016-09-19] MEDS: BUDESONIDE/FORMETEROL FUMARATE 160/4.5 mcg INHALER IH SCH ×2 (10:34→21:58)
--- NOTE | 2016-09-19 12:30 | PN ---
Progress Note (short form) - Note Progress Note: PULMONARY Feels better. No fevers or chills. No cough. Wants to go home. Last Vital Signs Temp Pulse Resp BP Pulse Ox 98.3 F 70 20 155/60 95 09/19/16 10:00 09/19/16 10:00 09/19/16 10:00 09/19/16 10:00 09/18/16 21:00 Gen: NAD at rest Heart: RRR Lung: decreased breath sounds at the bases Abd: soft, nontender Ext: no edema CBC, BMP 09/19/16 07:30 09/19/16 07:30 Active Medications Albuterol/Ipratropium (Duoneb -) 1 amp NEB Q4H PRN PRN Reason: SHORTNESS OF BREATH Atorvastatin Calcium (Lipitor -) 20 mg PO HS [facility] Last Admin: 09/18/16 21:58 Dose: 20 mg Budesonide/Formoterol Fumarate (Symbicort 160/4.5mcg -) 2 puff IH BID [facility] Last Admin: 09/19/16 10:34 Dose: 2 puff Calcium Carbonate (Os-Kota 500mg -) 500 mg PO DAILY [facility] Last Admin: 09/19/16 10:33 Dose: 500 mg Clopidogrel Bisulfate (Plavix -) 75 mg PO DAILY [facility] Last Admin: 09/19/16 10:33 Dose: 75 mg Heparin Sodium (Porcine) (Heparin -) 5,000 unit SQ BID [facility] Last Admin: 09/19/16 10:33 Dose: 5,000 unit Azithromycin (Zithromax 500mg Ivpb (Pre-Docked)) 250 mls @ 250 mls/hr IVPB DAILY [facility] Last Admin: 09/19/16 10:34 Dose: 250 mls/hr Ceftriaxone Sodium (Rocephin 2gm Ivpb (Pre-Docked)) 100 mls @ 200 mls/hr IVPB DAILY [facility] Last Admin: 09/19/16 10:34 Dose: 200 mls/hr Insulin Aspart (Novolog Vial Sliding Scale -) 1 vial SQ ACHS [facility] PRN Reason: Protocol Last Admin: 09/19/16 12:04 Dose: Not Given Pantoprazole Sodium (Protonix -) 40 mg PO DAILY [facility] Last Admin: 09/19/16 10:33 Dose: 40 mg Prednisone (Deltasone -) 20 mg PO DAILY [facility] Stop: 09/22/16 09:59 Last Admin: 09/19/16 10:33 Dose: 20 mg Sitagliptin Phosphate (Januvia -) 100 mg PO DAILY@0700 [facility] Last Admin: 09/19/16 06:32 Dose: 100 mg Sodium Chloride (Normal Saline -) 1,000 ml IV Q20M PRN PRN Reason: MAP<65mm Hg OR SBP <90 Last Admin: 09/16/16 11:56 Dose: 1,000 ml Valsartan (Diovan -) 80 mg PO DAILY [facility] Last Admin: 09/19/16 10:34 Dose: 80 mg A/P Pneumonia Asthma HTN DM - continue antibiotics - prednisone taper - inhaled bronchodilators - O2 as needed - DVT prophylaxis - if continues to improve, can likely change antibiotics to PO in AM and d/c home
--- NOTE | 2016-09-19 16:10 | PN ---
Progress Note, Physician History of Present Illness: Feeling better Less cough/ sputum No c/o fever/ chills Complains of burning at IV site during zithromax infusion - Current Medication List Current Medications: Active Medications Albuterol/Ipratropium (Duoneb -) 1 amp NEB Q4H PRN PRN Reason: SHORTNESS OF BREATH Atorvastatin Calcium (Lipitor -) 20 mg PO HS [facility] Last Admin: 09/18/16 21:58 Dose: 20 mg Budesonide/Formoterol Fumarate (Symbicort 160/4.5mcg -) 2 puff IH BID [facility] Last Admin: 09/19/16 10:34 Dose: 2 puff Calcium Carbonate (Os-Kota 500mg -) 500 mg PO DAILY [facility] Last Admin: 09/19/16 10:33 Dose: 500 mg Clopidogrel Bisulfate (Plavix -) 75 mg PO DAILY [facility] Last Admin: 09/19/16 10:33 Dose: 75 mg Heparin Sodium (Porcine) (Heparin -) 5,000 unit SQ BID [facility] Last Admin: 09/19/16 10:33 Dose: 5,000 unit Azithromycin (Zithromax 500mg Ivpb (Pre-Docked)) 250 mls @ 250 mls/hr IVPB DAILY [facility] Last Admin: 09/19/16 10:34 Dose: 250 mls/hr Ceftriaxone Sodium (Rocephin 2gm Ivpb (Pre-Docked)) 100 mls @ 200 mls/hr IVPB DAILY [facility] Last Admin: 09/19/16 10:34 Dose: 200 mls/hr Insulin Aspart (Novolog Vial Sliding Scale -) 1 vial SQ ACHS [facility] PRN Reason: Protocol Last Admin: 09/19/16 12:04 Dose: Not Given Pantoprazole Sodium (Protonix -) 40 mg PO DAILY [facility] Last Admin: 09/19/16 10:33 Dose: 40 mg Prednisone (Deltasone -) 20 mg PO DAILY [facility] Stop: 09/22/16 09:59 Last Admin: 09/19/16 10:33 Dose: 20 mg Sitagliptin Phosphate (Januvia -) 100 mg PO DAILY@0700 [facility] Last Admin: 09/19/16 06:32 Dose: 100 mg Sodium Chloride (Normal Saline -) 1,000 ml IV Q20M PRN PRN Reason: MAP<65mm Hg OR SBP <90 Last Admin: 09/16/16 11:56 Dose: 1,000 ml Valsartan (Diovan -) 80 mg PO DAILY [facility] Last Admin: 09/19/16 10:34 Dose: 80 mg - Objective Vital Signs: Vital Signs Temperature 98.7 F 09/19/16 15:32 Pulse Rate 70 09/19/16 15:32 Respiratory Rate 20 09/19/16 15:32 Blood Pressure 150/58 09/19/16 15:32 O2 Sat by Pulse Oximetry (%) 95 09/19/16 09:00 Constitutional: Yes: No Distress, Obese Eyes: Yes: Conjunctiva Clear Cardiovascular: Yes: Regular Rate and Rhythm, S1, S2 Respiratory: Yes: Rhonchi Gastrointestinal: Yes: Normal Bowel Sounds, Soft. 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
[2016-09-19] MEDS: LEVOFLOXACIN 500 MG TABLET (FP) PO SCH (17:18)
[2016-09-19] MEDS ORDERED: PT OWN MED DRAWER 7, Y5N ONE (20:15)
[2016-09-19] MEDS ORDERED: INSULIN (NOVOLOG) ASPART 100 UNITS/ML 10ML VIAL ONE (20:15)
[2016-09-19] MEDS: ATORVASTATIN CA 20 MG TABLET (FP) PO SCH (21:58)
[2016-09-20] MEDS: INSULIN SLIDING SCALE (NOVOLOG) 1 VIAL SQ SCH ×2 (06:07→11:06)
--- NOTE | 2016-09-20 07:03 | DS ---
Physical Examination Vital Signs: Vital Signs Temperature 98.6 F 09/20/16 06:00 Pulse Rate 64 09/20/16 06:00 Respiratory Rate 20 09/20/16 06:00 Blood Pressure 141/79 09/20/16 06:00 O2 Sat by Pulse Oximetry (%) 93 L 09/19/16 21:00 Constitutional: Yes: Calm Neck: Yes: WNL Cardiovascular: Yes: WNL Respiratory: Yes: WNL Gastrointestinal: Yes: WNL Edema: No Discharge Summary Reason For Visit: COMMUNITY AQUIRED PNEUMONIA,HYPOXIA Current Active Problems Asthma (Acute) CAP (community acquired pneumonia) (Acute) Diabetes (Acute) Hypoxia (Acute) Hospital Course: 65 yo F with PMHx of HTN , HLD, NIDDM, and CVA presents with 5 day history of cough and shortness of breath. She states that for the past week cough has been productive and worsened. BONNER not responsive to home breathing treatments. No alleviating or aggivating factors. Accompanied by body aches, CASTILLO, nausea and fever. She also endorses some LUQ pain which she attributes to continuous coughing. Denies palpitations, abd.pain, constipation, diarrhea or hemoptysis. (1) CAP (community acquired pneumonia) Code(s): J18.9 - PNEUMONIA, UNSPECIFIED ORGANISM APPRECIATE PULM & ID CONSULTS ID CONSULTED PO STEROIDS PO ABx (2) Hypertension Code(s): I10 - ESSENTIAL (PRIMARY) HYPERTENSION (3) Diabetes Code(s): E11.9 - TYPE 2 DIABETES MELLITUS WITHOUT COMPLICATIONS BG ISS (4) Asthma Code(s): J45.909 - UNSPECIFIED ASTHMA, UNCOMPLICATED DUONEB PO STEROIDS ABx [employer] FM Condition: Stable - Instructions Referrals: Adan Alvarez [Primary Care Provider] - Disposition: HOME - Home Medications Comprehensive Discharge Medication List: Ambulatory Orders Albuterol Sulfate Inhaler - [Ventolin Hfa Inhaler -] 1 puff IH ASDIR PRN Calcium Carbonate [Calcium] 500 mg PO DAILY 09/16/16 Clopidogrel Bisulfate [Clopidogrel] 75 mg PO DAILY 09/16/16 Fluconazole 150 mg PO DAILY 09/16/16 Linagliptin [Tradjenta] 5 mg PO DAILY 09/16/16 Pantoprazole Sodium [Protonix] 40 mg PO DAILY 09/16/16 Simvastatin 40 mg PO DAILY 09/16/16 Umeclidinium Brm/Vilanterol Tr [Anoro Ellipta 62.5-25 Mcg INH] 1 each IH DAILY PRN 09/16/16 Valsartan 80 mg PO DAILY 09/16/16
[2016-09-20 07:13] LABS: BASOPHIL 0.2 % (0-2.0); MCH 27.8 pg (25.7-33.7); MCHC 33.1 g/dl (32.0-36.0); MEAN CELL VOLUME 83.8 fl (80-96); MEAN PLT VOLUME 9.2 fl (7.5-11.1); PLATELET COUNT 209 K/MM3 (134-434); RDW 13.9 % (11.6-15.6)
[2016-09-20 07:32] LABS: ANION GAP 10 (8-16); CALCIUM 9.5 mg/dL (8.5-10.1); CO2 28 mmol/L (21-32); CREATININE 0.5 mg/dL (0.55-1.02); GLUCOSE,RANDOM 85 mg/dL (74-106); SGOT/AST 26 U/L (15-37); SGPT/ALT 29 U/L (12-78)
[2016-09-20 07:34] LABS: ALK PHOS 59 U/L (45-117); BILIRUBIN,TOTAL 0.3 mg/dL (0.2-1.0); TOT PROT 6.5 g/dl (6.4-8.2)
[2016-09-20] MEDS: sitaGLIPtin PHOSPHATE 100 MG TABLET (FP) PO SCH ×2 (08:33→08:34)
[2016-09-20 09:03] VITALS: BP 156/78; PULSE 66; TEMP 98.8
[2016-09-20] MEDS: CALCIUM (OYSTER SHELL) 500 MG TABLET (FP) PO SCH (10:15)
[2016-09-20] MEDS: VALSARTAN 80 MG TABLET (UD) PO SCH (10:15)
[2016-09-20] MEDS: LEVOFLOXACIN 500 MG TABLET (FP) PO SCH (10:15)
[2016-09-20] MEDS: predniSONE 20 MG TABLET (UD) PO SCH (10:15)
[2016-09-20] MEDS: PANTOPRAZOLE 40 MG TABLET (FP) PO SCH (10:15)
[2016-09-20] MEDS: HEPARIN NA (PORCINE) 5,000 UNITS/ML 1ML VIAL SQ SCH (10:15)
[2016-09-20] MEDS ORDERED: PT OWN MED DRAWER 7, Y5N ONE (10:30)
[2016-09-20] MEDS: BUDESONIDE/FORMETEROL FUMARATE 160/4.5 mcg INHALER IH SCH (10:32)
[2016-09-20] MEDS: CLOPIDOGREL BISULFATE 75 MG TABLET (FP) PO SCH (10:32)
== END 2016-09-20 12:38 | disposition home or self-care (01) | DRG 194 ==
LOC: JER 10:25 → JERBED 13:46 → J5S 18:25
PROVIDERS: ADMIT Family Medicine; ATTEND Family Medicine
DX: J18.9 Pneumonia, unspecified organism (principal); I69.354 Hemiplegia and hemiparesis following cerebral infarction affecting left non-dominant side; I10 Essential (primary) hypertension; E78.5 Hyperlipidemia, unspecified; E11.9 Type 2 diabetes mellitus without complications; Z87.891 Personal history of nicotine dependence; J45.909 Unspecified asthma, uncomplicated; Z79.84 Long term (current) use of oral hypoglycemic drugs; R09.02 Hypoxemia; R51 Headache; E66.9 Obesity, unspecified; Z68.37 Body mass index [BMI] 37.0-37.9, adult; H54.8 Legal blindness, as defined in USA; M41.9 Scoliosis, unspecified
CPT/HCPCS: 36415; 71010-TC; 71250-TC; 80053; 81003; 81015; 82550; 82803; 83605; 84484; 85025; 85610; 85730; 86850; 86900; 86901; 87040; 87070; 87205; 87804; 87899; 93005; 93010; 97116-GP; 97161-GP; 99283-25; J1644

== ENCOUNTER 2017-02-24 10:40 | Emergency (ER) | payer MEDICARE, OTHER ==
[2017-02-24 10:49] VITALS: BP 155/75; PULSE 105; TEMP 98.4; BMI 37.8
[2017-02-24] MEDS ORDERED: LIDOCAINE 5% TOPICAL PATCH ONE ×2 (12:33→12:34)
[2017-02-24] MEDS ORDERED: KETOROLAC TROMETHAMINE 30 MG/1 ML VIAL IM ONE (12:37)
[2017-02-24] MEDS ORDERED: LIDOCAINE 5% TOPICAL PATCH TP ONE (12:38)
--- NOTE | 2017-02-24 12:49 | PDOC ---
History of Present Illness - General Chief Complaint: Back Pain Stated Complaint: LOWER BACK PAIN Time Seen by Provider: 02/24/17 11:58 History Source: Patient - History of Present Illness Occurred: reports: last week Past History - Past Medical History Allergies/Adverse Reactions: Allergies Allergy/AdvReac Type Severity Reaction Status Date / Time methylphenidate HCl Allergy Verified 02/24/17 10:45 [From Ritalin] Home Medications: Ambulatory Orders Albuterol Sulfate Inhaler - [Ventolin HFA Inhaler -] 1 puff IH ASDIR PRN Calcium Carbonate [Calcium] 500 mg PO DAILY 09/16/16 Clopidogrel Bisulfate [Clopidogrel] 75 mg PO DAILY 09/16/16 Linagliptin [Tradjenta] 5 mg PO DAILY 09/16/16 Pantoprazole Sodium [Protonix] 40 mg PO DAILY 09/16/16 Simvastatin 40 mg PO DAILY 09/16/16 Valsartan 80 mg PO DAILY 09/16/16 Budesonide/Formeterol Fumarate [SYMBICORT 160/4.5mcg -] 2 puff IH BID #1 inhaler 09/20/16 Tramadol HCl 50 mg PO Q6H #20 tablet MDD 200 mg 02/24/17 Cancer: Yes (CERVIX) CVA: Yes (LEFT SIDED WEAKNESS RESIDUAL) Dialysis: Yes HTN: Yes Hypercholesterolemia: Yes Other medical history: scoliosis, legally blind - Suicide/Smoking/Psychosocial Hx Smoking Status: No Smoking History: Never smoked Have you smoked in the past 12 months: No Number of Cigarettes Smoked Daily: 0 Information on smoking cessation initiated: No Hx Alcohol Use: No Drug/Substance Use Hx: No Substance Use Type: None Hx Substance Use Treatment: No Review of Systems - Review of Systems Constitutional: No: Chills, Fever ABD/GI: No: Nausea, Vomiting : No: Flank Pain Musculoskeletal: Yes: Back Pain. No: Muscle Weakness Neurological: No: Numbness, Tingling, Weakness *Physical Exam - Vital Signs Last Vital Signs Temp Pulse Resp BP Pulse Ox 98.4 F 105 H 18 155/75 100 02/24/17 10:46 02/24/17 10:46 02/24/17 10:46 02/24/17 10:46 02/24/17 10:46 - Physical Exam General Appearance: Yes: Appropriately Dressed, Mild Distress HEENT: positive: Normal Voice Neck: positive: Supple Respiratory/Chest: negative: Respiratory Distress Gastrointestinal/Abdominal: negative: Tender Musculoskeletal: negative: CVA Tenderness Extremity: positive: Normal Inspection, Tender (to mid lower back) Integumentary: positive: Dry, Warm Neurologic: positive: Fully Oriented, Alert, Normal Mood/Affect ED Treatment Course - RADIOLOGY Radiology Studies Ordered: Category Date Time Status SPINE-LUMBAR SACRAL [RAD] Stat Radiology 02/24/17 12:38 Ordered Medical Decision Making - Medical Decision Making 02/24/17 12:45 66 yo obesed female, h/o NIDDM, HTN, HLD, scoliosis, osteoporosis, mostly wheelchair bound, chronic lower back pain, here w/ worsening lower back pain x several days, not relieved w/ her tylenol. No LE sensory changes, weakness, bowel or bladder incontinence or saddle anesthesia. Denies dysuria, hematuria, nausea, vomiting, fever or chills. No recent trauma. See exam Acute on chronic LBP No e/u cauda equina or infxn -pain control -XR r/o compression fx given RF 02/24/17 14:28 Mostly chronic changes see on XR. Pt somewhat better w/ meds. Dc w/ pain control and PMD f/u 02/24/17 14:46 02/24/17 14:50 *DC/Admit/Observation/Transfer Diagnosis at time of Disposition: Low back pain Qualifiers: Chronicity: acute Back pain laterality: bilateral Sciatica presence: without sciatica Qualified Code(s): M54.5 - Low back pain - Discharge Dispostion Disposition: HOME Condition at time of disposition: Improved - Prescriptions Prescriptions: Tramadol HCl 50 mg PO Q6H #20 tablet MDD 200 mg - Referrals Referrals: Adan Alvarez [Primary Care Provider] - - Patient Instructions Printed Discharge Instructions: Low Back Pain Additional Instructions: Take medications as needed for pain Please follow up with your PMD
[2017-02-24] MEDS ORDERED: LIDOCAINE PATCH REMOVAL MC SCH (22:00)
== END 2017-02-24 14:54 | disposition home or self-care (01) ==
LOC: JERFT 10:40
DX: M54.5 Low back pain (principal); I10 Essential (primary) hypertension; E11.9 Type 2 diabetes mellitus without complications; Z79.84 Long term (current) use of oral hypoglycemic drugs; M19.90 Unspecified osteoarthritis, unspecified site; Z99.3 Dependence on wheelchair
CPT/HCPCS: 72100-TC; 99281-25

== ENCOUNTER 2017-12-25 10:39 | Day surgery (SDC) | payer MEDICARE, OTHER ==
[2017-12-25 09:42] VITALS: BMI 38.9
[2017-12-25 10:28] VITALS: TEMP 98.6
[2017-12-25 11:36] VITALS: BP 129/59; PULSE 88
== END 2017-12-25 11:37 | disposition home or self-care (01) ==
LOC: JASU-ENDO 10:39
PROVIDERS: ATTEND Internal Medicine Gastroenterology
PROC: 0DJD8ZZ Inspection of Lower Intestinal Tract, Via Natural or Artificial Opening Endoscopic (ICD-10-PCS; principal; 2017-12-25 09:45)
DX: Z12.11 Encounter for screening for malignant neoplasm of colon (principal)